=== PATIENT | male | born 1940 | race Caucasian/White ===

== ENCOUNTER 2020-07-23 13:15 | Inpatient (IN) | payer MEDICARE, OTHER ==
[~2020-07-23 13:15] MED LIST: Iopamidol 370 76% 50 ML VIAL FS ONE; Iopamidol-370 76% 500 ML 1 ML ONE
[2020-07-23 14:11] LABS: #Basophils 0.1 thou/uL (0.0-0.2); #Eosinphils 0.4 thou/uL (0.0-0.7); #Lymphocytes 1.2 thou/uL (1.20-3.40); #Monocytes 0.8 thou/uL (0.11-0.59); #Neutrophils 4.1 thou/uL (1.40-6.50); %Basophils 1.3 % (0.0-1.0); %Eosinophils 6.2 % (0.0-10.0); %Lymphocytes 18.2 % (21.0-51.0); %Monocytes 12.1 % (0.0-10.0); %Neutrophils 62.1 % (42.0-75.0); Hemoglobin 13.1 g/dL (14.0-18.0); Mean Corpuscular HGB CONC 34.1 g/dL (32.0-36.0); Mean Corpuscular Hemoglobin 32.9 pg (27.0-31.0); Mean Corpuscular Volume 96.4 fL (78.0-98.0); Mean Platelet Volume 8.7 fL (7.4-10.4); Platelet Count 197 thou/uL (130-400); RBC Distribution Width 12.5 % (11.5-14.5); Red Blood Cell (RBC) Count 3.98 mill/uL (4.70-6.10); White Blood Cell (WBC) Count 6.5 thou/uL (4.8-10.8)
[2020-07-23 14:25] LABS: ALT (SGPT) 237 U/L (8-55); AST (SGOT) 149 U/L (5-34); Albumin 3.9 g/dL (3.4-4.8); Alkaline Phosphatase 275 U/L (40-110); Anion Gap 12 mmol/L (10-20); BUN (Urea Nitrogen) 14 mg/dL (8.4-25.7); Bilirubin, Total 8.1 mg/dL (0.2-1.2); Calc. Creatinine Clearance 0 mL/min (70-130); Calcium 8.9 mg/dL (7.8-10.44); Carbon Dioxide 23 mmol/L (23-31); Chloride 106 mmol/L (98-107); Estimated GFR-MDRD 63; Glucose 95 mg/dL (83-110); Lipase 62 U/L (8-78); Potassium 4.2 mmol/L (3.5-5.1); Protein, Total 6.9 g/dL (5.8-8.1); Sodium 137 mmol/L (136-145)
--- NOTE | 2020-07-23 15:41 | ULT ---
GALLBLADDER ULTRASOUND: 07/23/20 Images of the gallbladder show mild gallbladder distention. Echogenic sludge is seen layering depende ntly in the gallbladder. No definite gallstone. Gallbladder wall thickness is normal. The common bile duct is dilated measuring up to 9 mm. No intrahepatic ductal dilatation identified. T he visualized liver is unremarkable. The pancreas is obscured. The visualized right kidney is unremar kable. The technologist describes a negative Guerrero's sign. IMPRESSION: 1. Distended gallbladder with dense echogenic sludge. No definite gallstone. 2. Mildly dilated common bile duct. POS: AGW
--- NOTE | 2020-07-23 16:09 | CT ---
CT ABDOMEN AND PELVIS WITH IV CONTRAST; 07/23/20 INDICATIONS: Abdominal pain. No comparison. Correlation made to gallbladder ultrasound which revealed sludge in the gallbladder and dilated commo n bile duct. FINDINGS: Lung bases are clear. There is mild intrahepatic biliary duct dilatation seen on CT. There is also extrahepatic biliary heide t dilatation which was noted on ultrasound. The gallbladder is mildly distended corresponding to the ultrasound findings. The sludge noted on ultrasound is not apparent on CT. Spleen and pancreas unremarkable. Adrenal glands and kidneys unremarkable. Small bowel loops appear normal caliber. The colon appears unremarkable. Aorta normal caliber. No adenopathy. Images through the pelvis show prostatic hypertrophy impinging o n the floor of the bladder. The bladder is unremarkable. Osseous structures unremarkable. Degenerativ e changes in the spine. IMPRESSION: Distended gallbladder with intra and extrahepatic biliary duct dilatation corresponding to the ultras ound findings. POS: AGW
[2020-07-23] MEDS ORDERED: Ondansetron PF 4 MG/2 ML Vial IVP PRN (16:41)
[2020-07-23] MEDS ORDERED: Sodium Chloride 0.9% 1,000 ML IV SCH (16:45)
[2020-07-23] MEDS ORDERED: Morphine 2 MG/ML VIAL SLOW IVP PRN (16:49)
[2020-07-23] MEDS ORDERED: Ketorolac Tromethamine 30 MG/ML VIAL IVP PRN (16:56)
[2020-07-23] MEDS ORDERED: Acetaminophen 500 MG TAB PO PRN (16:56)
[2020-07-23] MEDS ORDERED: traMADol HCl 50 MG TAB PO PRN (16:56)
--- NOTE | 2020-07-23 17:34 | HP ---
CHIEF COMPLAINT: Not feeling well. HISTORY OF PRESENT ILLNESS: The patient is a 80-year-old male with past medical history of BPH, GERD, and hyperlipidemia, who presented to the hospital with complaints of not feeling well for the past week. The patient is visiting his lqmxyhgj-wg-bqe from out of town. She noticed that his skin and eyes appears to be yellow in color. The patient stated that he has been feeling tired over the past week and noticed that his urine is dark and his stools are light in color. In the ER, ultrasound of the right upper quadrant was performed after his bilirubin was found to be elevated. This also showed dilated gallbladder with minimally dilated common bile duct. A dense sludge was noted to be present in the gallbladder. The patient did not appear to be septic. REVIEW OF SYSTEMS: Negative except as noted in HPI. PAST MEDICAL HISTORY: As noted above. PAST SURGICAL HISTORY: Includes; 1. Jaw surgery. 2. Knee surgery. 3. Prostate surgery. 4. Appendectomy. 5. Tonsillectomy. SOCIAL HISTORY: The patient drinks alcohol socially. Denies alcohol use or smoking. ALLERGIES: NO KNOWN DRUG ALLERGIES. PHYSICAL EXAMINATION: GENERAL: The patient is alert and oriented x3. HEENT: Head is normocephalic and atraumatic. Extraocular muscles are intact. Conjunctivae are jaundiced and the skin appeared to be yellow. NECK: Supple. CHEST: Clear to auscultation bilaterally. CARDIOVASCULAR: Normal S1, S2. No murmurs, rubs, or gallops. ABDOMEN: Soft, nontender, nondistended. NEUROLOGIC: Nonfocal. ASSESSMENT: 1. Obstructive jaundice due to biliary sludge. 2. Elevated LFTs due to #1. 3. History of BPH. 4. History of hyperlipidemia. PLAN: The patient will be admitted to the hospital. We will start gentle hydration and clear liquid diet. His condition was discussed with GI and Surgery. The plan will be for likely ERCP and cholecystectomy. N.p.o. after midnight. He does not appear to be septic at this time, but we will initiate levofloxacin as his condition is high risk for ascending cholangitis. Lovenox for DVT prophylaxis. Job ID: [id number]
[2020-07-23 17:43] LABS: Bilirubin Negative (Negative); Blood, Urine Negative (Negative); Clarity Clear (Clear); Glucose, Urine (Dipstick) Normal (Negative); Ketone, Urine Negative (Negative); Leukocyte Negative Leu/uL (Negative); Nitrite Negative (Negative); Protein, Urine (Dipstick) Negative (Neg-Trace); Specific Gravity, Urine 1.024 (1.002-1.036); Urobilinogen Normal mg/dL (Less than 2); pH, Urine 5.5 (5.0-9.0)
--- NOTE | 2020-07-23 18:59 | CON ---
DATE OF CONSULTATION: HISTORY OF PRESENT ILLNESS: Federico Fournier is a 80-year-old male from [place] visiting family locally in [place], noted by his qcwaghme-oy-puf to be jaundiced and brought to the emergency room. Patient has had some indigestion and minor weight loss over the past few months. He has had some intermittent indigestion and belching upper abdomen. He reports having had a normal colonoscopy and upper endoscopy two years ago in [place]. He states that a few months ago in [place], he was feeling some malaise and saw a external grinder, underwent echocardiogram, EKG, and a chemical stress test, all of which were unremarkable, revealing normal coronaries. He also underwent carotid artery evaluation, ultrasound that was normal and PAD evaluation that was normal. Patient was seen in the emergency room. CAT scan of the abdomen and pelvis and ultrasound of abdomen obtained revealing gallstones, gall gallbladder sludge, 9 mm bile duct. Intrahepatic ductal dilatation without any suspicious masses. The patient has been admitted to the hospitalist. Gastrologist, Dr. Acevedo, consulted. I have discussed with Dr. Acevedo. Patient denies any fever or chills and does not have signs of sepsis. Plan is intravenous antibiotics, IV fluids and plan ERCP, laparoscopic cholecystectomy, cholangiogram tomorrow. Risks of operation, including infection, bleeding, visceral and biliary injury, open procedure, pancreatitis etc. were discussed and he consents. Questions answered. ALLERGIES: NONE. SOCIAL HISTORY: Tobacco, none; alcohol, none. MEDICATIONS: 1. Omeprazole 20 mg a day, which he takes for reflux for several years effectively controlling it. 2. Multivitamins daily. 3. Zinc daily. 4. Pravastatin 20 mg at bedtime. 5. Aspirin 325 mg a day. 6. Flomax 0.4 mg a day. 7. Dutasteride at nighttime. 8. Lexapro 10 mg at nighttime. PAST SURGICAL HISTORY: Tonsillectomy, appendectomy, TURP, prostate, meniscectomy, and ORIF mandible. PAST MEDICAL HISTORY: BPH and cholesterol. REVIEW OF SYSTEMS: Ten-point noncontributory. FAMILY HISTORY: Noncontributory. PHYSICAL EXAMINATION: VITAL SIGNS: 124/78, respiratory rate 18, and heart rate 68. LUNGS: Clear to auscultation. CARDIAC: Regular rate and rhythm. No murmur or gallop. ABDOMEN: Soft and nontender. EXTREMITIES: Unremarkable. SKIN: Jaundiced skin. EYES: Sclerae icteric. NEUROLOGIC: Intact. LYMPHATICS: No lymphadenopathy in neck, axilla, or groins. ASSESSMENT/PLAN: 1. Jaundice with gallstones and bile duct dilatation, intrahepatic dilatation. I have discussed with Dr. Acevedo. We will plan most likely ERCP, laparoscopic cholecystectomy, considering perhaps laparoscopic cholecystectomy, cholangiograms, and an ERCP. I think more likely an ERCP. Risks and benefits discussed. They consent. 2. Complete cardiac evaluation in the last 2 months. 3. Up-to-date on colonoscopies, upper endoscopies. No evidence of tumors on recent CAT scan. Job ID: [id number]
[2020-07-23 19:15] LABS: Magnesium 2.2 mg/dL (1.6-2.6); Phosphorus 3.4 mg/dL (2.3-4.7)
[2020-07-23] MEDS ORDERED: Simvastatin 10 MG TAB PO SCH (21:00)
[2020-07-23] MEDS ORDERED: Tamsulosin HCl 0.4 MG CAP PO SCH (21:00)
[2020-07-23] MEDS ORDERED: Pravastatin Sodium 20 MG TAB PO SCH (21:00)
--- NOTE | 2020-07-23 22:19 | CON ---
DATE OF CONSULTATION: 07/23/2020 REASON FOR CONSULTATION: Painless jaundice. HISTORY OF PRESENT ILLNESS: Federico Fournier is a very pleasant 80-year-old male, who lives in [place]. His son and asmctlyq-qu-akx lives in the [place]. Apparently, he lost his to Alzheimer dementia in March of 2020. He is mentally down and has not been eating very well. He says he does not feel like eating and also has some epigastric fullness over the last several months. He also has lost some weight and not able to tell me how much weight he has lost. He tells me he used wear pants 42 waist, and now it is down to 38 recently. The patient had no abdominal pain. No nausea or vomiting. There is no history any fever or chills. Bowel movements are fairly regular. No hematochezia. The stools are light-colored, and the urine is dark in color. Did not notice any jaundice until he came to his son's house on . His trdespss-dh-hia is a pediatric PA and she told him that he is jaundiced or something is wrong. The patient was brought to the ER and was found to have abnormal LFTs and he was deeply jaundiced. He had an abdominal sonogram done which revealed dilation of the common bile duct and intrahepatic ducts. There is no pancreatic mass seen. He does have biliary sludge, but no stone seen. A subsequent abdominal CAT scan showed the same findings, and there are no masses seen in the pancreatic head or the bile ducts. The patient was hospitalized because of the above reason. He had no other relevant symptoms. ALLERGIES: PENICILLINS AND SULFA. SOCIAL HISTORY: Recently . Does not smoke, but drinks alcohol socially. MEDICAL ILLNESSES: 1. Anxiety and depression. 2. Hyperlipidemia. 3. Prostatic hypertrophy, had surgery and on tamsulosin. He does have history of arthritis and takes Tramadol and some Toradol. PAST SURGICAL HISTORY: 1. Right knee surgery. 2. Tonsillectomy. 3. Appendectomy. 4. Jaw surgery, details of surgery unclear per the patient. FAMILY HISTORY: No family history of any cancer. MEDICATIONS: Reviewed, which include: 1. Acetaminophen. 2. Aspirin. 3. Toradol. 4. Levofloxacin. 5. Morphine. 6. Ondansetron. 7. Simvastatin. 8. Tamsulosin. 9. Tramadol. SYSTEM REVIEW: 10-point system review: CONSTITUTIONAL: Has been feeling poorly over the last several months and also gets angry for no reason. History of weight loss. No history of fever or chills. No change in exercise tolerance. HEAD: No chronic headache. No dizziness. EYES: No diplopia. No impaired vision. EARS: No hearing loss. NOSE: No nosebleed. THROAT: No sore throat. No dysphagia. LUNGS: No chronic coughing, hemoptysis. CARDIOVASCULAR SYSTEM: No chest pain. No palpitation. No dyspnea, orthopnea, or PND. GI: Some dyspepsia, poor appetite, and fullness of epigastric area. : no dysuria, hematuria MUSCULOSKELETAL: Not known. NEUROLOGICAL: Not known. NEUROPSYCHIATRY: Not known. PHYSICAL EXAMINATION: GENERAL: He is a very pleasant , who appears very comfortable. He is jaundiced. He is in no distress. VITAL SIGNS: Stable. He is afebrile. Pulse is 70. Blood pressure 140/70. He is deeply jaundiced. NECK: Supple. No adenitis or thyromegaly noted. . CARDIOVASCULAR SYSTEM: Normal heart sounds. LUNGS: Clear to auscultation. ABDOMEN: Soft. Abdomen is nontender. There is no organomegaly. No masses. Bowel sounds normal. EXTREMITIES: Reveal mild varicosities. DIRECTOR OF MANUFACTURING: Grossly within normal limits. LABORATORY DATA: Admitting CBC shows WBC 6500, hemoglobin 13.1, hematocrit 38.4, MCV 96.4, platelet count 197,000 polymorphs 62, lymphocytes 80, monocytes 12. Chemistries, lytes are normal. BUN is 14, creatinine 1.13, glucose 95, calcium 8.9, bilirubin 8.1, direct bilirubin is 5.7, AST 149, ALT 237, alkaline phosphatase 75, albumin 3.9, lipase 62, ammonia is 25. CLINICAL IMPRESSION: 1. Painless jaundice with weight loss, which is worrisome raising the possibility for malignancy. He has no abdominal pain and no other symptoms except for some dyspepsia, some poor appetite. 2. Prostatic hypertrophy, status post surgery. 3. Hyperlipidemia. 4. Anxiety/depression. PLAN: ERCP tomorrow. I did talk to Mr. Fournier about the ERCP procedure in detail. The benefits and risks involved were explained the patient including because of the pancreatitis, sepsis, bleeding, and perforation. I did talk to Dr. Thornton.If The patient had a stone in bile duct, so I believe this can be removed, but he might also need cholecystectomy at the same time. The plan is for ERCP and then decide where to go from there. Job ID: [id number] MTDD
[2020-07-23] MEDS: Lactated Ringer's 1,000 ML IV SCH (22:21)
[2020-07-23] MEDS: Enoxaparin Sodium 40 MG/0.4 ML SYRINGE SC SCH (22:21)
[2020-07-24 00:37] VITALS: BMI 27.1
[2020-07-24] MEDS: Lactated Ringer's 1,000 ML IV SCH ×3 (05:49→21:07)
[2020-07-24 07:05] LABS: ALT (SGPT) 208 U/L (8-55); AST (SGOT) 140 U/L (5-34); Albumin 3.3 g/dL (3.4-4.8); Alkaline Phosphatase 239 U/L (40-110); Anion Gap 11 mmol/L (10-20); BUN (Urea Nitrogen) 13 mg/dL (8.4-25.7); Bilirubin, Total 8.6 mg/dL (0.2-1.2); Calc. Creatinine Clearance 75 mL/min (70-130); Calcium 8.9 mg/dL (7.8-10.44); Carbon Dioxide 24 mmol/L (23-31); Chloride 104 mmol/L (98-107); Estimated GFR-MDRD 71; Globulin 2.6 g/dL (2.4-3.5); Glucose 96 mg/dL (83-110); Protein, Total 5.9 g/dL (5.8-8.1); Sodium 135 mmol/L (136-145)
[2020-07-24] MEDS ORDERED: Enoxaparin Sodium 40 MG/0.4 ML SYRINGE SC SCH (09:00)
[2020-07-24] MEDS ORDERED: Aspirin 81 mg Enteric Coated Tablet PO SCH (09:00)
[2020-07-24 12:29] LABS: SARS-CoV-2 MS2 Positive; SARS-CoV-2 N Gene Negative; SARS-CoV-2 S Gene Negative; SARS-CoV-2 by NAA Not Detected (NotDetected); SARS-CoV-2 orf1ab Negative
[2020-07-24] MEDS ORDERED: EPHEDRINE 25 MG/5 ML SYRINGE ONE (13:01)
[2020-07-24] MEDS ORDERED: Lidocaine 1% PF 5 ML VIAL ONE (13:01)
[2020-07-24] MEDS ORDERED: Ondansetron PF 4 MG/2 ML Vial ONE (13:01)
[2020-07-24] MEDS ORDERED: Glycopyrrolate 0.2 MG/ML 5 ML SYRINGE ONE (13:01)
[2020-07-24] MEDS ORDERED: Succinylcholine Chloride 20 MG/ML 10 ml SYRINGE FS ONE (13:01)
[2020-07-24] MEDS ORDERED: Dexamethasone 20 MG/5 ML VIAL ONE (13:01)
[2020-07-24] MEDS ORDERED: Rocuronium Bromide 10 MG/ML (10ML VIAL) ONE (13:01)
[2020-07-24] MEDS ORDERED: PROPOFOL 200 MG/20 ML VIAL ONE (13:01)
--- NOTE | 2020-07-24 13:23 | PDOC.HOSPP ---
- Subjective Encounter Date: 07/24/20 Subjective: The patient has no new complaints today. - Objective Vital Signs & Weight: Vital Signs (12 hours) Temp Pulse Resp BP Pulse Ox 07/24/20 12:00 98.4 F 63 16 116/64 98 07/24/20 08:00 98 07/24/20 07:11 98.2 F 62 20 109/58 L 98 07/24/20 04:30 98.1 F 60 18 113/65 97 Weight Weight 195 lb Result Diagrams: 07/23/20 14:01 07/24/20 05:53 Hospitalist ROS - Medication Medications: Active Medications Generic Name Dose Route Start Last Admin Trade Name Freq PRN Reason Stop Dose Admin Aspirin 81 mg 07/24/20 09:00 07/24/20 08:22 Aspirin 81 Mg Enteric Coated Tablet PO Not Given DAILY SARAI Enoxaparin Sodium 40 mg 07/23/20 21:00 07/23/20 22:21 Enoxaparin Sodium 40 Mg/0.4 Ml Syringe SC Not Given 2100 SARAI Levofloxacin 500 mg/ Device 100 mls @ 100 mls/hr 07/23/20 21:00 07/23/20 22:19 IVPB 100 mls Q24HR SARAI Administration Lactated Ringer's 1,000 mls @ 120 mls/hr 07/23/20 18:30 07/24/20 08:22 Lactated Ringer's IV 1,000 mls .[id number] SARAI Administration Simvastatin 10 mg 07/23/20 21:00 07/23/20 22:20 Simvastatin 10 Mg Tab PO 10 mg HS SARAI Administration Sodium Chloride 10 ml 07/23/20 21:00 07/24/20 08:22 Flush - Normal Saline 10 Ml Syringe IVF Not Given Q12HR SARIA Tamsulosin HCl 0.4 mg 07/23/20 21:00 07/23/20 22:19 Tamsulosin Hcl 0.4 Mg Cap PO 0.4 mg HS SARAI Administration - Exam General Appearance: awake alert ENT: normocephalic atraumatic Neck: supple, no JVD Respiratory: normal chest expansion, no tachypnea Extremities: no cyanosis, no clubbing, no edema Neurological: cranial nerve grossly intact, no focal deficits Hosp A/P (1) Obstructive jaundice Code(s): K83.1 - OBSTRUCTION OF BILE DUCT Status: Acute (2) Biliary sludge Code(s): K83.8 - OTHER SPECIFIED DISEASES OF BILIARY TRACT Status: Acute (3) Hyperlipidemia Code(s): E78.5 - HYPERLIPIDEMIA, UNSPECIFIED Status: Acute (4) BPH (benign prostatic hyperplasia) Code(s): N40.0 - BENIGN PROSTATIC HYPERPLASIA WITHOUT LOWER URINRY TRACT SYMP Status: Acute - Plan Continue supportive care with IV fluids and pain medications as needed. For ERCP and cholecystectomy per GI and surgical teams.
[2020-07-24] MEDS ORDERED: Fentanyl 100 MCG/2 ML VIAL ONE (14:55)
[2020-07-24] MEDS ORDERED: Midazolam HCl 2 mg/2 ml Vial ONE (14:55)
[2020-07-24] MEDS ORDERED: Iothalamate Meglumine 60% 50 ML VIAL FS ONE ×2 (15:51→18:38)
[2020-07-24] MEDS ORDERED: Bupivacaine 0.25% HCL 30 ML VIAL ONE (15:51)
[2020-07-24] MEDS ORDERED: Indomethacin 50 MG SUPP ONE (16:14)
[2020-07-24] MEDS ORDERED: Bupivacaine/Epinephrine 0.25% 30 ML VIAL ONE (18:38)
[2020-07-24] MEDS ORDERED: Ondansetron HCl/PF 4 MG/2 ML Vial IVP PRN (19:23)
[2020-07-24] MEDS ORDERED: HYDROmorphone 2 MG/ML VIAL SLOW IVP PRN (19:23)
[2020-07-24] MEDS ORDERED: Morphine Sulfate 2 MG/ML SYRINGE SLOW IVP PRN (19:23)
[2020-07-24] MEDS ORDERED: Promethazine HCl 25 MG/ML VIAL SLOW IVP PRN (19:23)
[2020-07-24] MEDS ORDERED: Promethazine HCl 25 MG/ML VIAL IM PRN (19:23)
--- NOTE | 2020-07-24 19:23 | RAD ---
Intraoperative cholangiogram: 07/24/2020 HISTORY: Cholecystectomy FINDINGS: There is intra and extrahepatic biliary dilatation with a dilated common bile duct. There i s a severe stricture of the distal common duct. There is contrast media within the cystic duct. No biliary filling defects are seen. IMPRESSION: Intra and extrahepatic biliary dilatation with severe stricture of the distal common bile duct. This could be related to a pancreatic mass. Thus, a GI consultation and an MRI of the abdomen with and without contrast is advised CODE T
[2020-07-24] MEDS ORDERED: Ibuprofen 600 MG TAB PO PRN (19:49)
[2020-07-24] MEDS ORDERED: ALPRAZolam 0.25 MG TAB PO PRN (19:51)
--- NOTE | 2020-07-24 20:42 | PRG ---
DATE OF SERVICE: 07/24/2020 Mr. Irlanda washington had ERCP, unsuccessful with persistent cannulation of the pancreatic duct. He was subsequently taken under the same anesthetic for laparoscopic cholecystectomy, cholangiograms revealing pancreatic biliary stricture. Bile duct was much more dilated than expected based on ultrasound criteria. The patient did well and I have discussed with Dr. Camilo Leach, office #[phone], fax #[phone]. Plan at this time is to discharge Mr. Fournier to home on Saturday. Dr. Camilo Leach's office will contact the patient's ogyxcwsx-rp-dbm, Payton, who I have provided her number. He will arrange endoscopic ultrasound, ERCP, and stenting probably Saturday. He will do this as an outpatient. I have already discussed with Dr. Leach and the patient's [id number] Payton is expecting a telephone call from Dr. Leach from [facility]. Job ID: [id number]
[2020-07-24] MEDS ORDERED: Dutasteride 0.5 MG CAP PO SCH (21:00)
[2020-07-24] MEDS ORDERED: Simvastatin 10 MG TAB PO SCH (21:00)
[2020-07-24] MEDS ORDERED: Tamsulosin HCl 0.4 MG CAP PO SCH (21:00)
[2020-07-24] MEDS: Enoxaparin Sodium 40 MG/0.4 ML SYRINGE SC SCH (21:05)
[2020-07-25] MEDS: Lactated Ringer's 1,000 ML IV SCH (04:59)
[2020-07-25 06:01] LABS: #Lymphocytes 0.6 thou/uL (1.20-3.40); #Monocytes 0.9 thou/uL (0.11-0.59); #Neutrophils 7.5 thou/uL (1.40-6.50); %Basophils 0.2 % (0.0-1.0); %Eosinophils 0.3 % (0.0-10.0); %Lymphocytes 6.8 % (21.0-51.0); %Monocytes 10.1 % (0.0-10.0); %Neutrophils 82.7 % (42.0-75.0); Hemoglobin 11.5 g/dL (14.0-18.0); Mean Corpuscular HGB CONC 34.4 g/dL (32.0-36.0); Mean Corpuscular Hemoglobin 32.6 pg (27.0-31.0); Mean Platelet Volume 9.2 fL (7.4-10.4); Platelet Count 194 thou/uL (130-400); RBC Distribution Width 12.4 % (11.5-14.5); Red Blood Cell (RBC) Count 3.52 mill/uL (4.70-6.10)
[2020-07-25 06:24] LABS: ALT (SGPT) 237 U/L (8-55); AST (SGOT) 193 U/L (5-34); Alkaline Phosphatase 255 U/L (40-110); Anion Gap 13 mmol/L (10-20); BUN (Urea Nitrogen) 21 mg/dL (8.4-25.7); Bilirubin, Total 8.7 mg/dL (0.2-1.2); Calc. Creatinine Clearance 60 mL/min (70-130); Calcium 8.7 mg/dL (7.8-10.44); Carbon Dioxide 21 mmol/L (23-31); Chloride 102 mmol/L (98-107); Estimated GFR-MDRD 55; Globulin 2.8 g/dL (2.4-3.5); Glucose 141 mg/dL (83-110); Potassium 4.2 mmol/L (3.5-5.1); Protein, Total 5.8 g/dL (5.8-8.1); Sodium 132 mmol/L (136-145)
[2020-07-25 07:29] VITALS: BP 105/62; TEMP 98.2
--- NOTE | 2020-07-25 08:25 | DIS ---
DATE OF ADMISSION: 07/23/2020 DATE OF DISCHARGE: 07/25/2020 DISCHARGE DIAGNOSIS: Obstructive jaundice secondary to biliary stricture, benign or malignant, pending further evaluation. PROCEDURES THIS HOSPITALIZATION: 1. Ultrasound abdomen, CT scan of the abdomen and pelvis revealing intrahepatic ductal dilatation, 8 mm bile duct, gallstone sludge, gallbladder distended. 2. Attempted endoscopic retrograde cholangiopancreatography by Dr. Acevedo unsuccessful after an hour and a half. 3. Laparoscopic cholecystectomy with intraoperative cholangiogram revealing biliary stricture. DISCHARGE ARRANGEMENTS: The patient discharged home this morning. The patient's daughter is a pediatric nurse practitioner and have given Dr. Camilo Leach's phone number to contact to arrange outpatient endoscopic ultrasound, biopsy, and stent placement in [place] on Saturday. The patient is COVID negative. The patient is being discharged home for further treatment as outpatient arrangements with Dr. Camilo Leach in [place]. DISCHARGE MEDICATIONS: Resume his home medications. 1. Omeprazole. 2. Multivitamins. 3. Zinc. 4. Flomax. 5. Pravastatin. 6. Lexapro. 7. Avodart. 8. Aspirin. In addition: 1. Ultram. 2. Levaquin. 3. Motrin. DIET AND ACTIVITY: As tolerated. DISCHARGE INSTRUCTIONS: No lifting restriction. Shower and bathe and wash wounds with soap and water. Follow up with Dr. Thornton as needed. Follow up with Dr. Leach for further evaluation of biliary stricture. Note, CAT scan of abdomen and pelvis, ultrasound, and laparoscopy did not reveal any evidence of metastatic disease. HISTORY: A 80-year-old male patient, presents with obstructive jaundice, undergoing the above evaluation, discharged with the above disposition. He did have outpatient cardiac evaluation 3 months ago in his hometown with a supervisor train operations with a chemical cardiac stress test, carotid ultrasound, PAD evaluation, echocardiogram, all of which were reported as normal. He is COVID negative this hospitalization. Job ID: [id number]
--- NOTE | 2020-07-25 08:38 | OP ---
DATE OF PROCEDURE: 07/24/2020 OPERATIVE PROCEDURE: Endoscopic retrograde cholangiopancreatography. PREOPERATIVE DIAGNOSIS: A 80-year-old male with jaundice and abdominal sonogram and CAT scan showing dilation of the bile duct including CBD and intrahepatic ducts. No pancreatic mass or any mass lesion seen. POSTOPERATIVE DIAGNOSES: 1. Normal periampullary area and no periampullary cancer seen. 2. 2 to 3 small ulcers in the duodenal bulb. 3. Normal stomach. 4. Normal pancreatic duct. 5. CBD could not be cannulated. DESCRIPTION OF PROCEDURE: The patient was intubated and was given sedation by Anesthesia Department. The patient given Indocin suppositories approximately 100 mg before the procedure. The patient was transferred from the stretcher to the fluoroscopy table. The patient was placed on his left lateral position and was turned on his stomach. A bite block was placed. A Pentax video duodenoscope under direct vision was passed down the oropharynx past the GE junction into the stomach and subsequently descending duodenum. The stomach does not show any pathology. Fundus and cardia, gastric body, gastric antrum with no lesion. The duodenal bulb showed couple of small ulcerations. In the descending duodenum the papilla was identified. The papilla was healthy appearing and no periampullary mass seen. Cannulation was achieved over a guidewire. Upon fluoroscopy the guidewire was seen in the pancreatic duct. Less than 2 mL of contrast given to verify the location. The pancreatic duct appears normal. No dilation or any cutoff seen. Several attempts made over a guidewire and each time the wire was seen in the_ pancreatic duct. The procedure was terminated. PLAN: Dr. Thornton is planning to do lap essie and followup cholangiogram. After cholangiogram, will decide whether he needs another ERCP or not. This was discussed with patient's arpgpslg-[id number]-wzo and also Dr. Thornton. Job ID: [id number] [facility]
--- NOTE | 2020-07-25 08:52 | OP ---
DATE OF PROCEDURE: 07/24/2020 PREOPERATIVE DIAGNOSES: Cholelithiasis, cholecystitis, obstructive jaundice, negative CAT scan of abdomen and pelvis except for intrahepatic ductal dilatation and ductal dilatation and sludge and stones in the gallbladder. Failed ERCP attempt. POSTOPERATIVE DIAGNOSES: Cholelithiasis, cholecystitis, obstructive jaundice, negative CAT scan of abdomen and pelvis except for intrahepatic ductal dilatation and ductal dilatation and sludge and stones in the gallbladder. Failed ERCP attempt. Distal biliary stricture, benign versus malignant, needs further evaluation. PROCEDURES PERFORMED: Laparoscopic video cholecystectomy, intraoperative cholangiograms. ANESTHESIA: General, local 0.5% Marcaine 30 mL with epinephrine total volume used. PLAN: The patient will be hospitalized overnight, discharged home in the morning to see Dr. Camilo Leach in [place]. Dr. Camilo Leach will contact the family, arrange for outpatient visit and ERCP, endoscopic ultrasound and biliary stent placement. DESCRIPTION OF PROCEDURE: The patient was taken to the operating room where under general anesthesia, abdomen was prepared with ChloraPrep and draped in routine fashion. Dr. Acevedo attempted ERCP unsuccessfully with persistent cannulation of pancreatic duct. Abdomen was prepared with ChloraPrep and draped in routine fashion. Local anesthetic was infiltrated in skin and subcutaneous tissue about each port site, infraumbilical incision made, pneumoperitoneum to 15 mmHg obtained with a Veress needle, replaced with a 5 port and laparoscope inserted. Right subxiphoid incision was made and 11 port placed and right subcostal incision made in midclavicular and anterior axillary line. The 5 port was placed. Liver appeared to be normal. Generalized view of the abdominal cavity was normal. There was no evidence of abnormalities. Gallbladder fundus was fragile and distended and required puncture and aspiration of dark bilious material to enable grasping it. It was grasped at the cephalad infundibulum, grasped and retracted laterally. Cystic artery and duct dissected free. Critical view obtained. Cystic artery doubly clipped proximally and divided. Gallbladder and cystic duct dissected free and a clip placed on the gallbladder side, opening made in the cystic duct and cholangiocatheter inserted. Anesthesia provided intravenous glucagon and cholangiogram was obtained using fluoroscopy, revealing markedly dilated common hepatic, common bile and left and right hepatic ducts with biliary stricture with some drainage into the duodenum. The patient tolerated the procedure well. Good hemostasis ensured with cautery. Gallbladder and contents removed, submitted to pathology, good hemostasis ensured. Irrigant and pneumoperitoneum evacuated, all instruments were removed and all skin incisions were approximated with interrupted subdermal 4-0 Monocryl and [place] glue applied. Job ID: [id number]
[2020-07-25] MEDS ORDERED: Aspirin 325 MG TAB PO SCH (09:00)
[2020-07-25] MEDS ORDERED: Multivitamin W/ Minerals 1 TAB PO SCH (09:00)
[2020-07-25] MEDS ORDERED: Cholecalciferol 1,000 UNITS (25 MCG) TAB PO SCH (09:00)
[2020-07-25] MEDS ORDERED: ZINC GLUCONATE ZINC PICOLINATE 30 MG PO SCH (09:00)
[2020-07-25] MEDS ORDERED: Escitalopram Oxalate 10 mg Tablet PO SCH (09:00)
--- NOTE | 2020-07-27 22:24 | PQF ---
CLINICAL DOCUMENTATION CLARIFICATION FORM: Dear : Luis Thornton MD Date / Time : 07/27/2020 Please exercise your independent, professional judgment in responding to the clarification form. Clinical indicators are provided on the bottom of this form for your review Please check appropriate box(es): [ ] Hyponatremia please specify etiology, if known [ ] Hyponatremia due to SIADH (Syndrome of Inappropriate Secretion of Antidiuretic Hormone) [ ] Other diagnosis (Please specify if any) [ yes ] Unable to determine In addition, please specify: Present on Admission (POA): [ yes ] Yes [ ] No [ ] Unable to determine Physician Signature: Date/Time: For continuity of documentation, please document condition throughout progress notes and discharge summary. Thank You. To be completed by CDI/Coding staff for physician review: Present Clinical Indicators - Signs / Symptoms / Labs Results and Location in Medical Record [x] Na level (Please cite specific Na level.) Na-135, 132 Laboratory on 07/24, 07/25 [ ] Decreased LOC, malaise, AVILA, [ ] Coma / Seizures [x] Generalized weakness ED provider report on 07/23 Present Risk Factors Results and Location in Medical Record [x] Aged person 80 yrs ED provider report on 07/23 [ ] Polydipsia [ ] Dehydration [ ] Lung cancer [ ] Diabetes Insipidus [ ] Diuretics Present Treatments Results and Location in Medical Record [x] IV fluids Lactate ringers 1,000 ml Medication on 07/23 [ ] Series of electrolyte labs [x] We will start gently hydration and clear liquid diet H&P on 07/23 [ ] CDS/Improvement Coordinator Signature: DEEDEE Phone #: Date/Time: 07/27/2020 This is a permanent part of the Medical Record [facility]
== END 2020-07-25 10:20 | disposition home or self-care (01) | DRG 419 ==
LOC: ERS 13:15 → T4-A 16:27
PROVIDERS: ADMIT Internal Medicine; ATTEND Internal Medicine
PROC: 0FJD8ZZ Inspection of Pancreatic Duct, Via Natural or Artificial Opening Endoscopic (ICD-10-PCS; principal; 2020-07-24)
PROC: 0FT44ZZ Resection of Gallbladder, Percutaneous Endoscopic Approach (ICD-10-PCS; 2020-07-24)
PROC: BF101ZZ Fluoroscopy of Bile Ducts using Low Osmolar Contrast (ICD-10-PCS; 2020-07-24)
DX: K80.40 Calculus of bile duct with cholecystitis, unspecified, without obstruction (principal); N40.0 Benign prostatic hyperplasia without lower urinary tract symptoms; K21.9 Gastro-esophageal reflux disease without esophagitis; E78.00 Pure hypercholesterolemia, unspecified; F32.9 Major depressive disorder, single episode, unspecified; Z20.828 Contact with and (suspected) exposure to other viral communicable diseases; K26.9 Duodenal ulcer, unspecified as acute or chronic, without hemorrhage or perforation; F41.9 Anxiety disorder, unspecified; K83.8 Other specified diseases of biliary tract; Z79.899 Other long term (current) drug therapy; Z90.49 Acquired absence of other specified parts of digestive tract; Z79.82 Long term (current) use of aspirin; Z88.2 Allergy status to sulfonamides; Z88.0 Allergy status to penicillin
CPT/HCPCS: 36415; 47532; 74177; 76705; 80053; 81003; 82140; 82248; 83690; 83735; 84100; 85025; 87635; 88304; J1100; J1610; J1650; J1885; J1956; J2250; J2405; J2704; J3010; Q9967; S0020; U0003

== ENCOUNTER 2020-09-05 17:27 | Outpatient (CLI) | payer MEDICARE, OTHER ==
[2020-09-05 18:58] LABS: #Basophils 0.1 10x3/uL (0.0-0.2); #Eosinphils 0.2 10x3/uL (0.0-0.5); #Monocytes 1.1 10x3/uL (0.0-1.1); #Neutrophils 9.4 10x3/uL (1.5-8.4); %Basophils 0.5 % (0.0-2.0); %Eosinophils 1.5 % (0.0-6.0); %Lymphocytes 14.9 % (18.0-47.0); %Monocytes 8.4 % (0.0-10.0); %Neutrophils 73.4 % (40.0-75.0); Hemoglobin 9.5 g/dL (14.0-18.0); Mean Corpuscular HGB CONC 32.9 G/DL (32.0-36.0); Mean Corpuscular Hemoglobin 29.7 PG (27.0-33.0); Mean Corpuscular Volume 90.3 fl (80.0-100.0); Mean Platelet Volume 9.6 fl (7.4-10.4); Platelet Count 384 10x3/uL (130-400); RBC Distribution Width 13.2 % (11.5-14.5); White Blood Cell (WBC) Count 12.8 10x3/uL (4.5-11.0)
--- NOTE | 2020-09-05 19:06 | RAD ---
EXAM: CHEST TWO VIEWS 09/05/2020 7:03 PM HISTORY: Preoperative evaluation. COMPARISON: CT the abdomen and pelvis dated July 23, 2020 FINDINGS: Lungs: No acute airspace consolidation. Heart: Heart size is normal. There is stable calcified pericardium involving the anterior and visual training aide ior aspect of the pericardium, better seen on a CT the abdomen and pelvis dated July 23, 2020. Pulmonary Vessels: Normal. Costophrenic Angles: Clear. Pneumothorax: None. Osseous Structures: Intact. Additional Findings: None. IMPRESSION: No significant acute intrathoracic disease.
[2020-09-05 19:14] LABS: ALT (SGPT) 14 U/L (8-55); AST (SGOT) 20 U/L (5-34); Albumin 2.9 g/dL (3.4-4.8); Alkaline Phosphatase 110 U/L (40-110); Anion Gap 13 mmol/L (10-20); BUN (Urea Nitrogen) 15 mg/dL (8.4-25.7); Bilirubin, Total 0.9 mg/dL (0.2-1.2); Calc. Creatinine Clearance 0 mL/min (70-130); Calcium 8.2 mg/dL (7.8-10.44); Carbon Dioxide 23 mmol/L (23-31); Chloride 98 mmol/L (98-107); Estimated GFR-MDRD 70; Globulin 3.6 g/dL (2.4-3.5); Glucose 115 mg/dL (83-110); Potassium 4.3 mmol/L (3.5-5.1); Protein, Total 6.5 g/dL (5.8-8.1); Sodium 130 mmol/L (136-145)
--- NOTE | 2020-09-06 01:13 | HP ---
HISTORY OF PRESENT ILLNESS: Federico Fournier is a 80-year-old male patient presenting with obstructive jaundice on 07/23/2020 and gallbladder sludge. The patient's [id number] presented during the interview. I saw him during that time and the patient is noted to have a normal colonoscopy and upper endoscopy two years ago in [place]. 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 Normal coronaries. He also underwent Cardiology evaluation and ultrasound that was normal. PAD evaluation is normal. The patient was seen in the emergency room at [facility]. CAT scan of the abdomen and pelvis, ultrasound of the abdomen and pelvis revealed gallstones, gallbladder sludge, 9 mm bile duct. Intrahepatic ductal dilatation without any suspicious masses initially. The patient admitted to the hospitalist service. He underwent a laparoscopic video cholecystectomy, cholangiograms after ERCP unsuccessful attempt. Findings at operation during cholangiograms were tapered common bile duct, suspicious for mass. Review of his CAT scan reveals a pancreatic head mass. The patient was discharged home, doing well and sent to Dr. Camilo Leach, interventional medical sonographer, who performed endoscopic ultrasound and fine-needle aspiration revealing pancreatic adenocarcinoma. Repeat CAT scan confirmed absence of metastatic disease appreciated, and ultrasound endoscopic revealed absence of obvious metastatic disease. The patient saw Dr. White, the pancreatic surgeon felt he was too weak to undergo a Whipple procedure and he was referred for chemotherapy and seen Dr. Montgomery. The patient will undergo MediPort placement in the next 48 hours, undergo COVID screening today. He was COVID negative on 07/23/2020. ALLERGIES: PENICILLIN AND SULFA. SOCIAL HISTORY: Tobacco, none. Alcohol, none. MEDICATIONS: 1. Omeprazole. 2. Multivitamin. 3. Zinc. 4. Pravastatin. 5. Aspirin. 6. Flomax. 7. Dutasteride. 8. Lexapro. PAST SURGICAL HISTORY: Tonsillectomy, appendectomy, TURP, prostate surgery, meniscectomy, ORIF mandible, laparoscopic cholecystectomy, endoscopic ultrasound, fine-needle aspiration biopsy, pancreatic head adenocarcinoma. PAST MEDICAL HISTORY: Pancreatic adenocarcinoma without evidence of metastatic disease, BPH, cholesterol, status post cholecystectomy, deconditioning. PHYSICAL EXAMINATION: VITAL SIGNS: Weight 169 pounds, height 5 feet 11 inches. Blood pressure 107/50, pulse 91, and temperature 97.4 degrees. HEAD, EARS, EYES, NOSE, AND THROAT: Unremarkable. LUNGS: Clear to auscultation. CARDIAC: Regular rate and rhythm without murmur or gallop. ABDOMEN: Soft and nontender. EXTREMITIES: Unremarkable. ASSESSMENT: Pancreatic adenocarcinoma with initial plastic, non-metallic stent placed to enable prolonged chemotherapy. PLAN: Placement of MediPort, IV sedation and local anesthesia outpatient. He understands risks and benefits, consents. Job ID: [id number]
[2020-09-06 04:01] LABS: SARS-CoV-2 MS2 Positive; SARS-CoV-2 N Gene Negative; SARS-CoV-2 S Gene Negative; SARS-CoV-2 by NAA Not Detected (NotDetected); SARS-CoV-2 orf1ab Negative
--- NOTE | 2020-09-06 12:37 | EKG ---
Test Reason : Blood Pressure : / mmHG Vent. Rate : 088 BPM Atrial Rate : 088 BPM P-R Int : 174 ms QRS Dur : 072 ms QT Int : 344 ms P-R-T Axes : 011 045 017 degrees QTc Int : 416 ms Normal sinus rhythm Possible Inferior infarct , age undetermined Abnormal ECG No previous ECGs available Confirmed by DR. Dane AYALA ([id number]) on 09/06/2020 12:36:36 PM Referred By: EDER Confirmed By:DR. Dane AYALA
== END 2020-09-05 17:28 | disposition home or self-care (01) ==
LOC: LABBT 17:27
DX: Z01.818 Encounter for other preprocedural examination (principal); Z20.828 Contact with and (suspected) exposure to other viral communicable diseases; C25.3 Malignant neoplasm of pancreatic duct
CPT/HCPCS: 71046; 80053; 85025; U0003; 87635; 93005; 93010

== ENCOUNTER 2020-09-07 12:12 | Day surgery (SDC) | payer MEDICARE, OTHER ==
[2020-09-06 16:41] VITALS: BMI 23.7
[~2020-09-07 12:12] MED LIST changes: -Iopamidol 370 76% 50 ML VIAL FS ONE; -Iopamidol-370 76% 500 ML 1 ML ONE; +PHENYLEPHRINE-NS 100 MCG/ML 10 ML SYRINGE ONE; +PROPOFOL 200 MG/20 ML VIAL ONE
[2020-09-07] MEDS ORDERED: Levofloxacin 500 mg/D5W 100 ml Premix Bag ONE (13:23)
[2020-09-07] MEDS ORDERED: Acetaminophen 500 MG TAB ONE (13:23)
[2020-09-07] MEDS ORDERED: Ketorolac Tromethamine 30 MG/ML VIAL ONE (13:23)
[2020-09-07] MEDS ORDERED: Lidocaine 1% w/Epinephrine 1:100K 20 ML VIAL ONE (14:24)
[2020-09-07] MEDS ORDERED: Bupivacaine PF 0.5% 30 ML VIAL ONE (14:24)
[2020-09-07] MEDS ORDERED: Midazolam HCl 2 mg/2 ml Vial ONE (14:25)
[2020-09-07] MEDS ORDERED: Fentanyl 100 MCG/2 ML VIAL ONE ×2 (14:25→15:28)
[2020-09-07] MEDS ORDERED: Propofol 500 MG/50 ML VIAL ONE (14:26)
[2020-09-07] MEDS ORDERED: Lidocaine 2% Jelly 5 ML TUBE ONE (15:28)
--- NOTE | 2020-09-07 16:31 | RAD ---
Exam: Chest one view HISTORY:Status post Mediport placement Comparison: 09/05/2020 FINDINGS: Lines and tubes: Interval placement of right-sided Mediport catheter. Distal tip projects over the harvey perior vena cava. Cardiac silhouette: Normal Aorta: Unremarkable Pulmonary vessels: Normal Costophrenic angles: Clear LUNGS: No changes, without consolidation or mass. Pneumothorax: None Osseous abnormalities: None IMPRESSION: 1. Interval placement of a right-sided Mediport catheter. No pneumothorax.
--- NOTE | 2020-09-07 21:39 | OP ---
DATE OF PROCEDURE: 09/07/2020 PREOPERATIVE DIAGNOSIS: Pancreatic cancer in need of antineoplastic chemotherapy access. POSTOPERATIVE DIAGNOSIS: Pancreatic cancer in need of antineoplastic chemotherapy access. PROCEDURE PERFORMED: Right subclavian vein MediPort, low-profile PowerPort. ANESTHESIA: TIVA local 0.25% Marcaine 30 mL mixed with 1% Xylocaine with epinephrine 20 mL. DESCRIPTION OF PROCEDURE: The patient was taken to the operating room, where under intravenous sedation, neck and chest were prepared with ChloraPrep and draped in routine fashion. Local anesthetic mixture was infiltrated into the skin and subcutaneous tissue about the operative site. The infraclavicular approach was made to place a right subclavian vein trocar catheter. J-wire threaded to the subclavian vein. Trocar catheter was removed. Skin site was enlarged sharply, creating a subcutaneous pocket with blunt and sharp dissection noting good hemostasis. Dilator and Peel-Away sheath were placed with J-wire in superior vena cava, and dilator and J-wire were removed. Catheter was placed through the Peel-Away sheath. Peel-Away sheath was removed. Catheter tip was placed in optimal position in superior vena cava, tailored to the length and connected to the MediPort, placed in the subcutaneous pocket, secured with 2 interrupted sutures of 3-0 Prolene. Subcutaneous tissues were approximated with 3-0 Monocryl, skin with subdermal 4-0 Monocryl and Felton glue applied. MediPort accessed with a Hendrix needle, aspirating blood, and flushed with heparinized saline solution, left access for Oncology use tomorrow. Sterile dressings were applied. Fluoroscopic images revealed good line placement. Job ID: [id number]
== END 2020-09-07 17:00 | disposition home or self-care (01) ==
LOC: SDC 12:12
PROVIDERS: ATTEND Specialist
PROC: 02HV33Z Insertion of Infusion Device into Superior Vena Cava, Percutaneous Approach (ICD-10-PCS; principal; 2020-09-07)
DX: C25.3 Malignant neoplasm of pancreatic duct (principal); Z79.899 Other long term (current) drug therapy; Z88.0 Allergy status to penicillin; Z88.2 Allergy status to sulfonamides
CPT/HCPCS: 36561; 71045; C1788; J1642; J1885; J1956; J2250; J2704; J3010; S0020